=== PATIENT | male | born 1985 | race Caucasian/White ===

== ENCOUNTER 2017-09-22 11:11 | Emergency (ER) | payer OTHER ==
[~2017-09-22] VITALS: Ht 177.8 cm; Wt 75.8 kg
[2017-09-22 11:47] LABS: BASOPHILS ABSOLUTE AUTO 0.01 K/mm3 (0.00-0.23); BASOPHILS PERCENT AUTO 0 % (0-2); EOSINOPHILS ABSOLUTE AUTO 0.15 K/mm3 (0.00-0.68); EOSINOPHILS PERCENT AUTO 2 % (0-6); Hematocrit 45.1 % (37.0-53.0); Hemoglobin 15.5 g/dL (13.5-17.5); IMMATURE GRAN ABSOLUTE AUTO 0.02 K/mm3 (0.00-0.10); IMMATURE GRAN PERCENT AUTO 0 % (0-1); LYMPHOCYTES ABSOLUTE AUTO 1.93 K/mm3 (0.84-5.20); LYMPHOCYTES PERCENT AUTO 26 % (21-46); MONOCYTES ABSOLUTE AUTO 0.37 K/mm3 (0.16-1.47); MONOCYTES PERCENT AUTO 5 % (4-13); Mean Corpuscular HGB Conc 34.4 g/dL (31.5-36.5); Mean Corpuscular Volume 87 fL (80-100); Mean Platelet Volume 10.1 fL (9.1-12.4); NEUTROPHILS ABSOLUTE AUTO 5.09 K/mm3 (1.96-9.15); NEUTROPHILS PERCENT AUTO 67 % (41-73); Platelet Count 255 K/mm3 (150-400); RDW Coefficient Variation 13.8 % (11.7-14.2); Red Blood Cell Count 5.17 M/mm3 (4.30-5.90); White Blood Cell Count 7.57 K/mm3 (4.00-11.30)
[2017-09-22 12:15] LABS: Alanine Aminotransfer (ALT/SGP 31 U/L (12-78); Albumin, Blood 4.6 g/dL (3.4-5.0); Albumin/Globulin Ratio 1.2 (0.8-1.8); Alk Phos 76 U/L (50-136); Anion Gap 8 mmol/L (6-16); Aspartate Aminotrans (AST/SGOT 20 U/L (12-37); Bilirubin, Total 0.5 mg/dL (0.1-1.0); Blood Urea Nitrogen 31 mg/dL (8-24); Bun/Creatinine Ratio 25.6 (12.0-20.0); CO2, Blood 24 mmol/L (21-32); Chloride, Blood 104 mmol/L (98-108); Creatinine, Blood 1.21 mg/dL (0.60-1.20); Globulin, Blood 3.8 g/dL (2.2-4.0); Glomerular Filtration Rate >60 (60-); Glucose, Blood 107 mg/dL (70-99); Potassium, Blood 4.2 mmol/L (3.5-5.5); Sodium, Blood 136 mmol/L (136-145); Total Protein, Blood 8.4 g/dL (6.4-8.2)
[2017-09-22 13:16] LABS: Source, Urine Clean Catch
[2017-09-22 13:20] LABS: Bilirubin, Urine Neg (Neg); Blood, Urine 1+ (Neg); Glucose Qualitative, Urine Neg (Neg); Ketones, Urine Neg (Neg); Leukocyte Esterase, Urine Neg (Neg); Nitrite, Urine Neg (Neg); Protein, Urine Neg (Neg); Urobilinogen, Urine NORM (Normal)
[2017-09-22 14:42] LABS: Appearance, Urine Clear (Clear); Color, Urine Yellow (P-Yellow)
[2017-09-22 14:44] LABS: Bacteria Rare /hpf; Squamous Epithelial Cells Few /hpf (Few); White Blood Cells, Urine 0-2 /hpf (0-5)
[2017-09-22] MEDS ORDERED: PROM25 PO (16:35)
[2017-09-22] MEDS ORDERED: OMEPRAZOLE MAGN20 MG PO (16:35)
[2017-09-22] MEDS ORDERED: Tylenol325 MG PO (16:35)
[2017-10-14] MEDS ORDERED: ALBU90OI (10:14)
== END 2017-09-22 16:45 | disposition home or self-care (01) ==
LOC: ER 11:11
PROVIDERS: Physician Assistant
DX: R31.9 Hematuria, unspecified (principal); R10.10 Upper abdominal pain, unspecified; K92.1 Melena; R07.9 Chest pain, unspecified; K21.9 Gastro-esophageal reflux disease without esophagitis; Z91.02 Food additives allergy status; Z87.891 Personal history of nicotine dependence
CPT/HCPCS: 36415; 80053; 81001; 83690; 85025; 96374; 96375; 99284; C9113; J2405; J2765

== ENCOUNTER 2017-10-20 06:34 | Day surgery (SDC) | payer OTHER ==
[~2017-10-20] VITALS: Ht 177.8 cm; Wt 76.4 kg
[~2017-10-20 06:34] MED LIST: ALBU90OI; OMEPRAZOLE MAGN20 MG PO; PROM25 PO; Tylenol325 MG PO
[2017-10-20] MEDS ORDERED: Symbicort 16010.2 GM (07:18)
== END 2017-10-20 08:51 | disposition home or self-care (01) ==
LOC: ORSCSDS 06:34
PROVIDERS: Internal Medicine Gastroenterology
PROC: 0DB58ZX Excision of Esophagus, Via Natural or Artificial Opening Endoscopic, Diagnostic (ICD-10-PCS; principal; 2017-10-20 08:15)
PROC: 0DB68ZX Excision of Stomach, Via Natural or Artificial Opening Endoscopic, Diagnostic (ICD-10-PCS; principal; 2017-10-20 08:15)
DX: K92.1 Melena (principal); K20.0 Eosinophilic esophagitis; R10.9 Unspecified abdominal pain; K29.70 Gastritis, unspecified, without bleeding; R11.10 Vomiting, unspecified; K21.9 Gastro-esophageal reflux disease without esophagitis; Z87.891 Personal history of nicotine dependence; Z79.899 Other long term (current) drug therapy
CPT/HCPCS: 88305; 88342; J0330; J1980; J2405

== ENCOUNTER 2018-01-04 03:29 | Emergency (ER) | payer OTHER ==
[~2018-01-04] VITALS: Ht 177.8 cm; Wt 81.7 kg
[~2018-01-04 03:29] MED LIST changes: +Symbicort 16010.2 GM
[2018-01-04] MEDS ORDERED: IBUP400 PO (04:04)
== END 2018-01-04 04:47 | disposition home or self-care (01) ==
LOC: ER 03:29
DX: K64.5 Perianal venous thrombosis (principal); Z91.02 Food additives allergy status; Z87.891 Personal history of nicotine dependence
CPT/HCPCS: 46083; 99283